=== PATIENT | female | born 1965 | race Caucasian/White ===

== ENCOUNTER 2020-03-09 08:15 | Outpatient (CLI) | payer OTHER ==
[2020-03-10 11:13] LABS: SARS-CoV-2 MS2 Positive; SARS-CoV-2 N Gene Negative; SARS-CoV-2 S Gene Negative; SARS-CoV-2 orf1ab Negative
== END 2020-03-09 08:16 | disposition home or self-care (01) ==
LOC: LABBT 08:15
PROVIDERS: ATTEND Otolaryngology Plastic Surgery within the Head & Neck
DX: Z01.818 Encounter for other preprocedural examination (principal); Z11.59 Encounter for screening for other viral diseases; C73 Malignant neoplasm of thyroid gland; E04.1 Nontoxic single thyroid nodule; R53.83 Other fatigue
CPT/HCPCS: 85014; 87635; 93005; 93010; U0003

== ENCOUNTER 2020-03-11 09:05 | Observation (INO) | payer OTHER ==
[2020-03-09 17:08] VITALS: BMI 27.4
[2020-03-11] MEDS ORDERED: Lidocaine 1% w/Epinephrine 1:100K 20 ML VIAL ONE (09:59)
[2020-03-11] MEDS ORDERED: Bacitracin Zinc Ointment 30 gm TUBE ONE (09:59)
[2020-03-11] MEDS ORDERED: Fentanyl 100 MCG/2 ML VIAL ONE ×3 (10:26→14:15)
[2020-03-11] MEDS ORDERED: Midazolam HCl 2 mg/2 ml Vial ONE (10:28)
[2020-03-11] MEDS ORDERED: Ondansetron PF 4 MG/2 ML Vial ONE (10:42)
[2020-03-11] MEDS ORDERED: PHENYLEPHRINE-NS 100 MCG/ML 10 ML SYRINGE ONE (10:42)
[2020-03-11] MEDS ORDERED: Dexamethasone 20 MG/5 ML VIAL ONE (10:42)
[2020-03-11] MEDS ORDERED: Succinylcholine Chloride 20 MG/ML 10 ml SYRINGE FS ONE (10:42)
[2020-03-11] MEDS ORDERED: Lidocaine 1% PF 5 ML VIAL ONE (10:42)
[2020-03-11] MEDS ORDERED: PROPOFOL 200 MG/20 ML VIAL ONE (10:42)
[2020-03-11] MEDS ORDERED: methylPREDNISolone Acetate 40 mg/ml Vial ONE (13:15)
[2020-03-11] MEDS ORDERED: Promethazine HCl 25 MG/ML VIAL IM PRN (13:48)
[2020-03-11] MEDS ORDERED: Meperidine HCl/PF 25 MG/ML VIAL SLOW IVP PRN (13:48)
[2020-03-11] MEDS ORDERED: Promethazine HCl 25 MG/ML VIAL SLOW IVP PRN (13:48)
[2020-03-11] MEDS ORDERED: Ketorolac Tromethamine 30 MG/ML VIAL IVP PRN (13:48)
[2020-03-11] MEDS ORDERED: Ondansetron HCl/PF 4 MG/2 ML Vial IVP PRN (13:48)
[2020-03-11] MEDS ORDERED: HYDROmorphone 2 MG/ML VIAL SLOW IVP PRN (13:48)
[2020-03-11] MEDS ORDERED: Ondansetron PF 4 MG/2 ML Vial IVP PRN (14:14)
[2020-03-11] MEDS ORDERED: HYDROcodone/Acetaminophen 7.5/325 mg Tablet PO PRN (14:16)
[2020-03-11] MEDS ORDERED: Morphine 2 MG/ML SYRINGE SLOW IVP PRN (14:17)
[2020-03-11] MEDS: Calcium Carbonate 500 MG TAB PO SCH (17:42)
[2020-03-11] MEDS: HYDROcodone/Acetaminophen 7.5/325 mg Tablet PO PRN ×2 (17:43→21:53)
[2020-03-11] MEDS: Sodium Chloride 0.45% 1,000 ML IV SCH (17:53)
[2020-03-11] MEDS: ceFAZolin 1 GM/D5W 1 GM in Premix Bag 1 BAG IVPB SCH (22:39)
--- NOTE | 2020-03-12 01:54 | OP ---
DATE OF PROCEDURE: 03/11/2020 PREOPERATIVE DIAGNOSIS: Right papillary thyroid carcinoma. POSTOPERATIVE DIAGNOSIS: Right papillary thyroid carcinoma. PROCEDURES PERFORMED: Total thyroidectomy with intraoperative laryngeal nerve monitoring. ESTIMATED BLOOD LOSS: 20 mL. COMPLICATIONS: None. ANESTHESIA: GETA. DESCRIPTION OF PROCEDURE: The patient was taken to the operating room and general endotracheal anesthesia was obtained by the anesthesia staff. The tube was secured between the electrodes and this was confirmed via direct laryngoscopy. The tube was then secured to the midline of the upper lip. The nerve monitor was then turned on and remained on throughout the procedure. Following this, the patient was prepped and draped in standard surgical fashion. 8 mL of 1% lidocaine with 1:100,000 epinephrine was then injected in a javon shaped area overlying the thyroid gland. Following this, approximately 4 cm long incision was made in a skin crease located approximately 2 cm above the sternal notch. The incision was made through skin, subcutaneous tissue and the platysmal layer. Subplatysmal flaps were elevated superiorly to the level of the thyroid notch and inferiorly to the level of the clavicles. Following this, the strap muscles were in the midline and were removed from the thyroid capsule. Following this, dissection was then performed on the right side first, staying immediately adjacent to the thyroid capsule. The middle thyroid vein was suture ligated. The superior thyroid vascular pedicle was then isolated and suture ligated protecting the superior parathyroid gland. Following this, the gland was displaced medial and the right recurrent laryngeal nerve was identified and was dissected into the cricothyroid joint and the was removed from this area. The inferior thyroid artery was suture ligated. Following this, the attachments of the right thyroid lobe to the trachea were ligated with the bipolar electrocautery device, freeing the right thyroid gland and the isthmus from the trachea. Following this, a similar procedure was performed on the left side. The left recurrent laryngeal nerve was noted to be coursing 15 degrees from the tracheoesophageal groove. Inferior thyroid artery was suture ligated and the superior thyroid vascular pedicle was suture ligated. The gland was then displaced medially and the gland was freed from its attachments to the trachea. Following this, the entire thyroid gland was removed. Hemostasis was obtained. A drain was placed and was secured with . The wound was then closed using a Monocryl stitch for the strap muscles and platysmal and subcuticular layers, and the skin was closed using Dermabond. The patient tolerated the procedure well. Intraoperative laryngeal nerve was then turned off. The patient was taken to recovery room in stable condition. Job ID: [id number]
[2020-03-12] MEDS: HYDROcodone/Acetaminophen 7.5/325 mg Tablet PO PRN ×2 (03:00→11:06)
[2020-03-12] MEDS: ceFAZolin 1 GM/D5W 1 GM in Premix Bag 1 BAG IVPB SCH (06:04)
[2020-03-12] MEDS: Sodium Chloride 0.45% 1,000 ML IV SCH (06:04)
[2020-03-12 07:25] VITALS: BP 118/76; TEMP 98.8
[2020-03-12] MEDS ORDERED: Calcitriol 0.25 MCG CAP PO SCH (09:00)
[2020-03-12] MEDS: Calcium Carbonate 500 MG TAB PO SCH (11:02)
== END 2020-03-12 13:03 | disposition home or self-care (01) ==
LOC: SDC 09:05 → SURG B 13:58
PROVIDERS: ADMIT Otolaryngology Plastic Surgery within the Head & Neck; ATTEND Otolaryngology Plastic Surgery within the Head & Neck
PROC: 0GTK0ZZ Resection of Thyroid Gland, Open Approach (ICD-10-PCS; principal; 2020-03-11)
PROC: 0GBJ0ZZ Excision of Thyroid Gland Isthmus, Open Approach (ICD-10-PCS; 2020-03-11)
DX: C73 Malignant neoplasm of thyroid gland (principal); E04.1 Nontoxic single thyroid nodule; F32.9 Major depressive disorder, single episode, unspecified; F41.9 Anxiety disorder, unspecified; Z87.891 Personal history of nicotine dependence; Z79.899 Other long term (current) drug therapy
CPT/HCPCS: 82310; 88307; 96365; 96376; G0378; J0690; J1030; J1100; J2001; J2250; J2405; J2704; J3010